=== PATIENT | female | born 1935 | race Caucasian/White ===

== ENCOUNTER → 2017-01-05 | Day surgery (SDC) | payer MEDICARE, OTHER ==
[~2017-01-05] VITALS: Ht 154.9 cm; Wt 80.0 kg
[2017-01-05] VITALS (8 sets, daily range): BP systolic 108–137; BP diastolic 46–62; PULSE 83–106; RESP 14–24; Ht 154.9 cm; Wt 80.0 kg
[~2017-01-05] MED LIST: ACETAMINOPHEN 325 MG TAB PO PRN; ASPI81TA3 PO; CALC1TAB32 PO; CLOP75TA27 PO; Carbidopa-Levodopa PO; FENTAnyl 50 MCG/ML VIAL ONE; FURO40TA4 PO; HEPARIN 1000 UNITS/ML 10 ML INJ ONE; IODIXANOL LOCM 100 ML BTL ONE; IODIXANOL LOCM 50 ML BTL ONE; KCL 20 MEQ PO; LEVO250T9 PO; LIDOCAINE 1% (MDV) 20 ML INJ ONE; MIDAZOLAM 1 MG/ML 2 ML INJ ONE; NITROGLYCERIN 50 MG/D5W (PMX) 0 ML ONE; PANT40TA3 PO; SOD CHLORIDE 0.9% 500 ML ONE; VALS160T20 PO; VERAPAMIL 5 MG INJ ONE; metoprolol ER PO
[2017-01-05 07:14] LABS: BASOPHIL # 0.1 10^3/ul (0.0-0.1); BASOPHILS % 0.6 % (0.0-2.0); EOSINOPHILS # 0.3 10^3/ul (0.0-0.5); HEMATOCRIT 38.7 % (37.0-47.0); LYMPHOCYTES # 1.3 10^3/ul (0.8-2.9); LYMPHOCYTES % 10.9 % (15.0-51.0); MEAN CORPUSCULAR HEMOGLOBIN 26.3 pg (29.0-33.0); MEAN CORPUSCULAR HGB CONC 30.5 g/dl (32.0-37.0); MEAN CORPUSCULAR VOLUME 86.2 fl (82.0-101.0); MEAN PLATELET VOLUME 9.8 fl (7.4-10.4); MONOCYTE # 1.3 10^3/ul (0.3-0.9); MONOCYTES % 10.2 % (0.0-11.0); NEUTROPHILS % 75.5 % (39.0-77.0); PLATELET COUNT 382 10^3/UL (140-415); RED BLOOD COUNT 4.49 10^6/ul (4.20-5.40); RED CELL DISTRIBUTION WIDTH 16.3 % (11.5-14.5)
[2017-01-05 07:31] LABS: HOLD TRANSMISSIONS 1
[2017-01-05 07:34] LABS: HEMOGLOBIN 11.8 g/dl (12.0-16.0); WHITE BLOOD COUNT 12.2 10^3/ul (4.8-10.8)
[2017-01-05 07:38] LABS: ALBUMIN 3.6 g/dl (3.3-4.9); BILIRUBIN,INDIRECT 0.4 mg/dl (0-1.1); BILIRUBIN,TOTAL 0.4 mg/dl (0.2-1.3); TOTAL PROTEIN 7.2 g/dl (6.1-8.1)
[2017-01-05 07:42] LABS: INR 1.04; PROTIME 13.6 Sec (12.2-14.2); PT RATIO 1.1
[2017-01-05 07:43] LABS: PARTIAL THROMBOPLASTIN TIME 30.6 Sec (25.0-35.0)
[2017-01-05 07:55] LABS: CALCIUM 8.9 mg/dl (8.4-10.2); POTASSIUM 3.9 mmol/L (3.5-5.1)
[2017-01-05 07:57] LABS: CREATININE 1.37 mg/dl (0.44-1.00)
--- NOTE | 2017-01-05 08:19 | RADRPT ---
PROCEDURE: XR Chest. CLINICAL INDICATION: Shortness of breath. TECHNIQUE: Single frontal view. COMPARISON: None. FINDINGS: There is mild left basilar atelectasis. The lungs are otherwise clear. The heart is enlarged. There is calcification in the aorta consistent with atherosclerosis. There is no pleural effusion. There is no pneumothorax. IMPRESSION: 1. Mild left basilar atelectasis. 2. Cardiomegaly and atherosclerosis. RPTAT: QQ .Itz Aguillon MD, MD Date Time Electronically viewed and signed by .Itz Aguillon MD, MD on 01/05/2017 08:19 .R/
--- NOTE | 2017-01-05 09:42 | OPR ---
Date/Time of Note Date/Time of Note DATE: 01/05/17 TIME: 09:32 Operative Report Procedure Date: Jan 05, 2017 Preoperative Diagnosis Peripheral vascular disease Postoperative Diagnosis The same Operation Performed 1 atherectomy left popliteal artery 2 atherectomy left superficial femoral artery 3 balloon angioplasty left popliteal artery and superficial femoral artery with a 2 x 60 mm balloon, 3 x 80 mm balloon, 4 x 100 mm balloon and 5 x 200 mm balloon 4 abdominal aortogram 5 catheter introduction the abdominal aorta 6 third order to get a angiogram left lower extremity 7 ultrasound guidance into the femoral artery 8 conscious sedation for 2 hours 9 fluoroscopy Surgeon: KASIA CASTANEDA MD Anesthesia Type: MAC Estimated Blood Loss: minimal Transfusion Required: no Specimen: none Grafts/Implants: none Complications: no Pt Condition Post Procedure: stable Indications Peripheral vascular disease Procedure Description Patient was taken to the cardiac catheterization lab prepped and draped in usual sterile fashion 1% lidocaine was discharged the operation for local anesthesia abdominal aortogram was done followed by passing the catheter from left to right from interpretation supervision of the aortogram revealed abdominal aorta normal bilateral common iliac arteries normal bilateral internal iliac arteries normal bilateral external iliac arteries normal bilateral common femoral artery is normal on the left side profunda was patent superficial femoral artery proximally was normal distally was 100% occluded with an occlusion of the popliteal artery left trifurcation of the popliteal artery was subtotaled with anterior tibial artery on the opacifying in the mid leg posterior tibial artery and the peroneal artery 100% occluded Patient was given 5000 units of IV heparin and the sheath was exchanged to a long 60 cm 6 [place] sheath Balloon angioplasty of the suture femoral artery was performed after passing a Glidewire through it all the way down from the superficial femoral artery to the popliteal artery to anterior tibial artery This was very tight wire had to be exchanged 2014 wire with a 2 mm balloon subsequently this was again done with a 3 and a 4 mm balloon we then proceeded with atherectomy however the atherectomy would only go down to the follow-up femoral and popliteal artery and would not negotiate into the anterior tibial artery The superficial femoral artery and popliteal artery angioplastied again using 5 x 200 mm balloon The final angiogram revealed patent femoral and popliteal artery however the anterior tibial artery still had significant lesions However at this time many collaterals that opened up this patient will be evaluated for conservative therapy and local wound care at this time the sheath was exchanged to a 6 [place] short sheath and the procedure was terminated end of the KASIA CASTANEDA MD Jan 05, 2017 09:42
== END | disposition home or self-care (01) ==
LOC: EDSEX 05:56 → SDS 05:56 → CCL 06:07
PROVIDERS: ATTEND Thoracic Surgery (Cardiothoracic Vascular Surgery)
DX: I73.9 Peripheral vascular disease, unspecified (principal)
CPT/HCPCS: 37225; 71010; 80053; 82962; 85025; 85610; 85730; C1714; C1725; C1769; C1887; C1894; J1644; J2250; J3010; J7040; Q9967